=== PATIENT | male | born 1990 | race Caucasian/White ===

== ENCOUNTER 2017-01-05 04:09 | Emergency (ER) | payer OTHER ==
--- NOTE | 2017-01-05 05:05 | ER Document Report ---
HPI - HPI Patient complains to provider of: left ankle pain Pain Level: 2 Context: Patient is a 26-year-old male who comes emergency department for chief complaint of pain to his left ankle, he states that he tripped over a piece of Rebar 10 days ago, initially he had pain and swelling but this actually resolved and then came back and started to worsen again. He has pain with walking on it. He denies any other areas of pain or any other injuries. He denies any daily medications. He denies any medical history other than tonsillectomy. - DERM Skin Color: Normal Past Medical History - General Information source: Patient - Social History Smoking Status: Never Smoker Frequency of alcohol use: None Drug Abuse: None Lives with: Family Family History: None Patient has suicidal ideation: No Patient has homicidal ideation: No - Medical History Medical History: Negative Renal/ Medical History: Denies: Hx Peritoneal Dialysis Past Surgical History: Reports: Hx Adenoidectomy, Hx Tonsillectomy - Immunizations Immunizations up to date: Yes Hx Diphtheria, Pertussis, Tetanus Vaccination: Yes Vertical Provider Document - CONSTITUTIONAL General Appearance: WD/WN, No Apparent Distress - INFECTION CONTROL TRAVEL OUTSIDE OF THE [place] IN LAST 30 DAYS: No - HEENT HEENT: Atraumatic, Normocephalic - NECK Neck: Normal Inspection - RESPIRATORY Respiratory: Breath Sounds Normal, No Respiratory Distress O2 Sat by Pulse Oximetry: 99 - CARDIOVASCULAR Cardiovascular: Regular Rate, Regular Rhythm - GI/ABDOMEN Gastrointestinal: Abdomen Soft, Abdomen Non-Tender - BACK Back: Normal Inspection - MUSCULOSKELETAL/EXTREMETIES Musculoskeletal/Extremeties: MAEW, FROM, Tender - Tenderness over the left dorsal aspect of the foot at the base of the ankle on both sides just adjacent and anterior to the medial and lateral malleolus. No obvious swelling, normal dorsalis pedis and capillary refill, normal sensation, normal range of motion of the ankle, normal knee and hip exams. Course - Re-evaluation Re-evalutation: Suspect ligamentous or soft tissue source of patient's symptoms. X-ray is unremarkable. Treating with ankle stirrup, anti-inflammatories, recommendations , work release. Patient states satisfaction and agreement. - Vital Signs Vital signs: Temp Pulse Resp BP Pulse Ox 97.4 F 57 L 16 163/80 H 99 01/05/17 04:14 01/05/17 04:14 01/05/17 04:14 01/05/17 04:14 01/05/17 04:14 - Diagnostic Test Radiology reviewed: Image reviewed, Reports reviewed Procedures - Immobilization Left ankle Pre-Proc Neuro Vasc Exam: Normal Immobilizer type: Ankle stirrup Performed by: PCT Post-Proc Neuro Vasc Exam: Normal Alignment checked and good: Yes Discharge - Discharge Clinical Impression: Left ankle pain Qualifiers: Chronicity: acute Qualified Code(s): M25.572 - Pain in left ankle and joints of left foot Condition: Stable Disposition: HOME, SELF-CARE Additional Instructions: Examination is consistent with ligament injury. X-ray is normal. Ice the ankle for 3-4 times a day (10-15 minutes each time), use the crutches and ankle splint for the next 2-3 days, take the naproxen. Follow up with Primary Care. Return to the ED for any concerning or worsening symptoms - severe pain, swelling, redness, etc. Prescriptions: Naproxen 500 mg PO BID #20 tablet Forms: Return to Work, Elevated Blood Pressure
--- NOTE | 2017-01-05 05:29 | RADIOLOGY REPORT (SQ) ---
EXAM DESCRIPTION: ANKLE LEFT COMPLETE COMPLETED DATE/TIME: 01/05/2017 5:18 am REASON FOR STUDY: injury, pain. Fell 1 week ago, left ankle still painful at the medial malleolus. COMPARISON: Left ankle x-ray 11/06/2007. NUMBER OF VIEWS: Three views. TECHNIQUE: AP, lateral, and oblique radiographic images acquired of the left ankle. LIMITATIONS: None. FINDINGS: MINERALIZATION: Normal. BONES: No acute fracture or dislocation. No worrisome bone lesions. JOINTS: No effusion. SOFT TISSUES: No soft tissue swelling. No radiopaque foreign body. IMPRESSION: NO RADIOGRAPHIC EVIDENCE OF ACUTE INJURY. TECHNICAL DOCUMENTATION: JOB ID: [id number] [email or web address]- All Rights Reserved
[2017-01-05 06:17] VITALS: BP 151/74
== END 2017-01-05 06:01 | disposition home or self-care (01) ==
LOC: ER 04:09
PROC: 2W3RX1Z Immobilization of Left Lower Leg using Splint (ICD-10-PCS; principal; 2017-01-05)
DX: M25.572 Pain in left ankle and joints of left foot (principal); W01.0XXA Fall on same level from slipping, tripping and stumbling without subsequent striking against object, initial encounter; Y99.0 Civilian activity done for income or pay
CPT/HCPCS: 99283; 73610; L1902